=== PATIENT | male | born 1970 | race Caucasian/White ===

== ENCOUNTER 2024-05-04 01:14 | Emergency (ER) | payer OTHER, SELFPAY ==
[2024-05-04 01:19] VITALS: BP 156/95
--- NOTE | 2024-05-04 01:47 | ED.GENMED ---
History of Present Illness
<SILVANA Keith - Last Filed: 05/04/24 01:58>
General
Chief Complaint: Anal/Rectal Problem
Source: patient
Exam Limitations: none
Time Seen by Provider: 05/04/24 01:24
Travel History
Have you had any contact with someone who has COVID-19?: No
Do you have any symptoms of coronavirus? Fever > 100 degrees, chills, cough, shortness of breath, sore throat, loss of taste or smell, muscle aches, or headache?: No
History of Present Illness
History of Present Illness:
53 year old male with hx of HLD, anxiety, depression who presents with rectal pain x 2 days, worsened tonight. Pt reports rectal pain that began 2 days ago. Pain is worsened with sitting down for long periods and sometimes walking. He states he has
a hx of hemorrhoids and had a hemorrhoidectomy in 2005. He also had a colonoscopy in 2020 showing hemorrhoids. He took a sitz bath tonight at 2100 with relief of his pain. He went to bed at around 2230 and at midnight was woken up with 9/10 rectal
pain, prompting his visit. He states he does not strain and is not constipated. Denies any painful BM, bloody stools, fevers/chills, abdominal pain, n/v/d, constipation, dysuria, hematuria. Denies any change in diet, change in medications. Admits to
heavy weight lifting at the gym, specifically an ab workout machine which he adds weight to.
Past History
<SILVANA Keith - Last Filed: 05/04/24 01:58>
Past History
ED Past Medical History: Psychiatric
Social History
Tobacco: Non-smoker
Alcohol: None
Drug: None
Review of Systems
<SILVANA Keith - Last Filed: 05/04/24 01:58>
Review of Systems
Allergies reviewed?: Yes
All Other Systems: ROS reviewed and negative except as documented in HPI and ROS
Constitutional: Reports no symptoms
EENT: Reports no symptoms
Respiratory: Reports no symptoms
Cardiac: Reports no symptoms
ABD/GI: Reports other (rectal pain)
: Reports no symptoms
Musculoskeletal: Reports no symptoms
Skin: Reports no symptoms
Neurological: Reports no symptoms
Endocrine: Reports no symptoms
Hematologic/Lymphatic: Reports no symptoms
Psychiatric: Reports no symptoms
Phy Exam
<SILVANA Keith - Last Filed: 05/04/24 01:58>
General Physical Exam
General Presentation: well appearing
General age: appears stated age
General Skin: warm and dry
General Habitus: normal and cachetic
General Mental: alert
General Hydration: appears well hydrated
Cardiovascular Exam
Cardiovascular Exam: regular rate/rhythm, no edema, no gallop and no murmur
Pulmonary Exam
Pulmonary Exam: lungs clear, no respiratory distress, no rales, no crackles, no rhonchi, no wheezing and no cough
Gastrointestinal Exam
Gastrointestinal Exam: non tender, soft, no pulsatile mass and non distended
Rectal Exam: hemorrhoids (1.5 x 1.5 cm non-thrombosed external hemorrhoid, no active bleeding)
Skin Exam
Skin Exam: normal color and warm/dry
Psychiatric Exam
Psychiatric Exam: normal mood/affect
Course
<SILVANA Keith - Last Filed: 05/04/24 01:58>
Vital Signs
Initial and Last Documented VS:
Initial Vital Signs
Temp Pulse Resp BP Pulse Ox
98.2 F 80 20 156/95 96
05/04/24 01:19 05/04/24 01:19 05/04/24 01:19 05/04/24 01:19 05/04/24 01:19
Last Documented Vital Signs
Temp Pulse Resp BP Pulse Ox
98.2 F 80 20 156/95 96
05/04/24 01:19 05/04/24 01:05/04/24 01:05/04/24 01:05/04/24 01:19
<Preston Hammer MD - Last Filed: 05/04/24 01:58>
Vital Signs
Initial and Last Documented VS:
Initial Vital Signs
Temp Pulse Resp BP Pulse Ox
98.2 F 80 20 156/95 96
05/04/24 01:19 05/04/24 01:05/04/24 01:05/04/24 01:05/04/24 01:19
Last Documented Vital Signs
Temp Pulse Resp BP Pulse Ox
98.2 F 80 20 156/95 96
05/04/24 01:19 05/04/24 01:05/04/24 01:05/04/24 01:19 05/04/24 01:19
<SILVANA Keith - Last Filed: 05/04/24 01:58>
MDM/Problems Addressed
Differential Diagnosis Includes:
non-thrombosed external hemorrhoid
MDM/Problems Addressed:
53 year old male who presents with rectal pain x 2 days, worsened tonight.
Chronic conditions affecting care: Psychiatric illness (anxiety, depression) and Other (HLD)
<SILVANA Keith - Last Filed: 05/04/24 01:58>
*Critical Care Note
Total Time (30-74mins, 75-104mins- exclusive of procedures): Not Applicable
ED Attending Note
<SILVANA Keith - Last Filed: 05/04/24 01:58>
-
Portions of this chart may have been created with voice recognition software.� Occasional wrong word or��sound alike� substitutions may have occurred due to the inherent limitations of voice recognition software.
<Preston Hammer MD - Last Filed: 05/04/24 01:58>
ED Attending Note
Patient seen and examined by attending physician: Yes
ED Attending Note:
Patient presents to ED after waking up this morning secondary to severe rectal pain. Patient states that he has had intermittent over the past 2 days. Denies trauma. Denies fever or chills. Denies change in bowel habits. Denies nausea or
vomiting. Denies difficulty with bowel movements. Patient had similar episode in 2005, requiring procedure to remove external hemorrhoid. Recently, patient states that he has been working out at the gym, including different routine for abdominal
workup.
Physical Exam
General: no apparent distress, not acutely ill. afebrile
Head: nc/at. eomi
Neck: supple. no meningeal signs.
Abdomen: normal bowel sounds. not tender. Rectal exam: an approx 1mm, nonthrombosed external hemorrhoid noted, tender to palpation. no bleeding noted.
Neuro: alert and oriented. no focal neurological deficits
Skin: no rash
Psychiatric: well kept. interactive and cooperative
Extremities: no edema. no calf tenderness.
History and exam consistent with nonthrombosed external hemorrhoid, which may have been triggered by recent change in his exercise routine, which may have increased intra-abdominal pressure. Advised rest, prescribed dibucaine ointment for
symptomatic relief, as well as sitz bath, as well as outpatient consultation with colorectal surgeon.
Discharge Plan
Departure
Patient Disposition: Home (Routine Discharge)
Date of Disposition: 05/04/24
Time of Disposition: 01:47
Patient with high blood pressure during this ER visit?: Yes
Discharge Problem:
External hemorrhoids without complication
Instructions: Hemorrhoids (DC), How to Do a Sitz Bath
Prescriptions:
New
dibucaine 1 % ointment
1 applic RI TID PRN (Reason: rectal discomfort) Qty: 56 0RF
No Action
Lexapro
20 mg PO DAILY
rosuvastatin [Crestor] 5 mg Tablet
5 mg PO DAILY
Referrals:
Mir Bledsoe MD [Active] -
Activity Restrictions/Additional Instructions:
As discussed, please follow up with referred colorectal surgeon for further evaluation and treatment.
Interventions
Interventions:
*Risk Screen - Suicide Last Done: 05/04/24 01:19
*General Assessment Last Done: 05/04/24 01:19
*Neglect/Abuse Screening Last Done: 05/04/24 01:19
ED- Fall Risk Assessment Last Done: 05/04/24 01:19
*ED COVID-19 Vaccine History Last Done: 05/04/24 01:19
Discharge Date and Time
Print Language: HUNGARIAN
== END 2024-05-04 02:04 | disposition home or self-care (01) ==
LOC: EMR 01:14
PROVIDERS: EMERGENCY PHYSICIAN Emergency Medicine; FAMILY PHYSICIAN Internal Medicine
DX: K64.4 Residual hemorrhoidal skin tags (principal); F41.8 Other specified anxiety disorders; Z87.19 Personal history of other diseases of the digestive system
CPT/HCPCS: 99282